=== PATIENT | male | born 1965 | race Caucasian/White ===

== ENCOUNTER 2018-01-16 10:04 | Emergency (ER) | payer OTHER ==
[2018-01-16] MEDS ORDERED: KETOROLAC 30 MG/ML INJ ONE (10:44)
--- NOTE | 2018-01-16 11:42 | RAD REPORT ---
EXAM DESCRIPTION: US - Scrotum Testicles - 01/16/2018 11:29 am CLINICAL HISTORY: Left testicular pain COMPARISON: None. FINDINGS: Right testicle is 3.9 x 1.9 x 2.5 cm. Left testicle is 4.3 x 2.3 x 3.1 cm. Right testicle shows homogeneous echogenicity with no mass. Normal Doppler blood flow pattern is seen. No definitive or well demarcated mass in the left testicle. There is a 15 millimeter area of slightly diminished o r heterogeneous echogenicity in the inferior left testicle. Left testicle is slightly hyperemic relat raymundo to the right. No suspicious epididymis finding on the left. Right epididymis contains an incident al 14 millimeter cyst. Small a moderate left varicocele is present. Minimal bilateral hydroceles. No hernia or mass in the inguinal canal. IMPRESSION: Slight hyperemia of the left testicle and slight heterogeneous echogenicity in the infer ior aspect. Left-sided orchitis is favored. Mass of the left testicle is unlikely; however, re-evaluation in 1-2 months after medical management is needed to re-evaluate the heterogeneous tissue for resolution. Small to moderate left varicocele.
--- NOTE | 2018-01-16 11:47 | ER ---
Nurse's Notes [facility] Name: Jamila Leon Age: 52 yrs Sex: Male : 1965 Arrival Date: 01/16/2018 Time: 10:07 Bed 8 Private MD: Gurmeet Franklin Diagnosis: Orchitis Presentation: 01/16 10:17 Presenting complaint: Patient states: Left testicular redness/pain/swelling since la1 Wednesday, worse yesterday. Transition of care: patient was not received from another setting of care. Onset of symptoms was January 16, 2018. Risk Assessment: Do you want to hurt yourself or someone else? Patient reports no desire to harm self or others. Initial Sepsis Screen: Does the patient meet any 2 criteria? No. Patient's initial sepsis screen is negative. Does the patient have a suspected source of infection? No. Patient's initial sepsis screen is negative. Care prior to arrival: None. 10:17 Method Of Arrival: Ambulatory la1 10:17 Acuity: YOSEF 3 la1 Historical: - Allergies: 10:18 No Known Allergies; la1 - PMHx: 10:18 None; la1 - PSHx: 10:18 Cholecystectomy; la1 - Immunization history:: Adult Immunizations up to date. - Social history:: Smoking status: Patient uses tobacco products, smokes one pack cigarettes per day. - Ebola Screening: : No symptoms or risks identified at this time. Screenin:43 Abuse screen: Denies threats or abuse. Nutritional screening: No deficits noted. la1 Tuberculosis screening: No symptoms or risk factors identified. Fall Risk None identified. Assessment: 10:42 General: Appears in no apparent distress. Behavior is calm, cooperative. Pain: la1 Complains of pain in left testicle. Neuro: Level of Consciousness is awake, alert, obeys commands, Oriented to person, place, time, situation. Cardiovascular: Capillary refill < 3 seconds Patient's skin is warm and dry. Respiratory: Airway is patent Respiratory effort is even, unlabored, Respiratory pattern is regular, symmetrical. GI: No signs and/or symptoms were reported involving the gastrointestinal system. : Swelling noted on scrotum. Vital Signs: 10:18 BP 150 / 82; Pulse 106; Resp 18; Temp 98.5(TE); Pulse Ox 100% on R/A; Weight 111.13 kg; la1 Height 6 ft. 3 in. (190.50 cm); 12:07 BP 145 / 74; Pulse 95; Resp 16; Temp 98.7; Pulse Ox 98% on R/A; la1 10:18 Body Mass Index 30.62 (111.13 kg, 190.50 cm) la1 ED Course: 10:07 Patient arrived in ED. rg4 10:07 Gurmeet Franklin MD is Private Physician. rg4 10:11 [facility] jmm 10:11 Markell Stock MD is Attending Physician. jmm 10:17 Butch Alaniz, KELLIE is Primary Nurse. la1 10:17 Triage completed. la1 10:18 Arm band placed on right wrist. la1 10:43 Bed in low position. Call light in reach. la1 10:48 Urine collected: clean catch specimen, cloudy, mini colored. jb1 11:26 Ultrasound completed. Patient tolerated well. sg3 11:30 US Scrotum Testicles In Process Unspecified. EDMS 11:46 Glenna Snyder MD is Referral Physician. [facility] Administered Medications: 10:41 Drug: TORadol 30 mg Route: IM; Site: right gluteus; la1 12:07 Follow up: Response: No adverse reaction la1 Outcome: 11:47 Discharge ordered by . [facility] 12:07 Patient left the ED. la1 Signatures: Dispatcher [employer] EDMS Leighton Rubio jb1 Juan Jose Ruano PA PA jmm Attema, Lee, RN RN la1 Virgen Narvaez rg4 Shirley Baker sg3
--- NOTE | 2018-01-16 11:47 | EDPHYS ---
Physician Documentation [facility] Name: Jamila Leon Age: 52 yrs Sex: Male : 1965 Arrival Date: 01/16/2018 Time: 10:07 Bed 8 Private MD: Gurmeet Franklin ED Physician Markell Stock HPI: 01/16 10:24 This 52 yrs old Male presents to ER via Ambulatory with complaints of jmm Testicular Swelling. 10:24 The patient presents with swelling, urinary symptoms, dribbling of urine, dysuria. jmm Onset: The symptoms/episode began/occurred gradually, 4 day(s) ago. Modifying factors: The symptoms are alleviated by nothing, the symptoms are aggravated by nothing. This is a 52 year old male with no chronic medical conditions that presents to the ED with left sided scrotal swelling beginning today. Patient states having dysuria beginning this past Wednesday. Denies fever, denies vomiting. . Historical: - Allergies: 10:18 No Known Allergies; la1 - PMHx: 10:18 None; la1 - PSHx: 10:18 Cholecystectomy; la1 - Immunization history:: Adult Immunizations up to date. - Social history:: Smoking status: Patient uses tobacco products, smokes one pack cigarettes per day. - Ebola Screening: : No symptoms or risks identified at this time. ROS: 10:24 Constitutional: Negative for fever, chills, and weight loss, Cardiovascular: Negative jmm for chest pain, palpitations, and edema, Respiratory: Negative for shortness of breath, cough, wheezing, and pleuritic chest pain. 10:24 MS/Extremity: Negative for injury and deformity, Skin: Negative for injury, rash, and discoloration, Neuro: Negative for headache, weakness, numbness, tingling, and seizure. 10:24 : Positive for urinary symptoms, testicular pain 10:24 All other systems are negative. Exam: 10:24 Constitutional: This is a well developed, well nourished patient who is awake, alert, jmm and in no acute distress. Head/Face: atraumatic. Eyes: EOMI, no conjunctival erythema appreciated ENT: Moist Mucus Membranes Neck: Trachea midline, Supple Chest/axilla: Normal chest wall appearance and motion. Cardiovascular: Regular rate and rhythm. No edema appreciated Respiratory: Normal respirations, no respiratory distress appreciated Abdomen/GI: Non distended, soft 10:24 : left sided scrotal swelling, TTP, (+) Cremasteric reflex intact. 10:24 Musculoskeletal/extremity: ROM: intact in all extremities. 10:24 Skin: Appearance: Color: normal in color, erythema noted to the left side of the scrotum. 10:24 Neuro: Orientation: is normal, Mentation: is normal, Memory: is normal. 10:24 Psych: Behavior/mood is pleasant, cooperative. Vital Signs: 10:18 BP 150 / 82; Pulse 106; Resp 18; Temp 98.5(TE); Pulse Ox 100% on R/A; Weight 111.13 kg; la1 Height 6 ft. 3 in. (190.50 cm); 12:07 BP 145 / 74; Pulse 95; Resp 16; Temp 98.7; Pulse Ox 98% on R/A; la1 10:18 Body Mass Index 30.62 (111.13 kg, 190.50 cm) la1 MDM: 10:19 Patient medically screened. [facility] 11:46 Data reviewed: vital signs, nurses notes. Counseling: I had a detailed discussion with [facility] the patient and/or guardian regarding: the historical points, exam findings, and any diagnostic results supporting the discharge/admit diagnosis, lab results, radiology results, the need for outpatient follow up, to return to the emergency department if symptoms worsen or persist or if there are any questions or concerns that arise at home. 11:46 ED course: Patient is alert and non toxic in appearance in the ED. Patient prescribed [facility] oral antibiotics. Patient was advised to closely follow up with Urology for further evaluation. patient otherwise given strict return precautions. patient understood and agrees with the plan of care. . 01/16 10:24 Order name: Urine Culture [facility] 01/16 10:50 Order name: Urine Dipstick--Ancillary (enter results) bd 01/16 10:24 Order name: US Scrotum Testicles; Complete Time: 11:44 [facility] 01/16 10:24 Order name: Urine Dipstick-Ancillary (obtain specimen); Complete Time: 10:47 [facility] 01/16 10:51 Order name: Urine Dipstick-Ancillary EDMS Administered Medications: 10:41 Drug: TORadol 30 mg Route: IM; Site: right gluteus; la1 12:07 Follow up: Response: No adverse reaction la1 Disposition: 01/16/18 11:47 Discharged to Home. Impression: Orchitis. - Condition is Stable. - Discharge Instructions: Orchitis. - Prescriptions for Cephalexin 500 mg Oral Capsule - take 1 capsule by ORAL route every 12 hours for 10 days; 20 capsule. Ultracet 37.5- 325 mg Oral Tablet - take 1 tablet by ORAL route every 6 hours - for up to 5 days; do not exceed 8 tablets per day.; 12 tablet. - Medication Reconciliation Form, Thank You Letter, Antibiotic Education, Prescription Opioid Use form. - Follow up: Glenna Snyder MD; When: 2 - 3 days; Reason: Recheck today's complaints, Continuance of care, Re-evaluation by your physician. Addendum: 01/17/2018 15:15 Co-signature as Attending Physician, Markell Stock MD. g s Signatures: Dispatcher [employer] EDMS Juan Jose Ruano PA PA jmm Attema, Lee, RN RN la1 Markell Stock MD MD Corrections: (The following items were deleted from the chart) 01/16 12:07 11:47 01/16/2018 11:47 Discharged to Home. Impression: Orchitis. Condition is Stable. la1 Forms are Medication Reconciliation Form, Thank You Letter, Antibiotic Education, Prescription Opioid Use. Follow up: Glenna Snyder; When: 2 - 3 days; Reason: Recheck today's complaints, Continuance of care, Re-evaluation by your physician. marc
[2018-01-16 20:15] LABS: Urine Blood TRACE (NEG); Urine Glucose NEGATIVE (NEG); Urine Protein NEGATIVE (NEG); Urine pH 6.5 (5.0-7.0)
== END 2018-01-16 12:07 | disposition home or self-care (01) ==
LOC: ER 10:04
DX: N45.2 Orchitis (principal); F17.210 Nicotine dependence, cigarettes, uncomplicated
CPT/HCPCS: 76870; 81003; 87086; 87088; 96372; 99283